=== PATIENT | female | born 1975 | race African-American/Black ===

== ENCOUNTER 2017-04-04 16:00 | Emergency (ER) | payer OTHER ==
[~2017-04-04] VITALS: Ht 177.8 cm; Wt 117.9 kg
[2017-04-04 16:02] VITALS: BP 142/90
[2017-04-04] MEDS ORDERED: MOBIC7.5 MG PO (16:19)
[2017-04-04] MEDS ORDERED: PENICILLIN VK500 M1 PO (16:19)
[2017-04-04] MEDS ORDERED: ULTRAM 50MG TAB50 MG PO (17:04)
== END 2017-04-04 17:14 | disposition home or self-care (01) ==
LOC: ER 16:00
DX: K05.219 Aggressive periodontitis, localized, unspecified severity (principal); F17.210 Nicotine dependence, cigarettes, uncomplicated

== ENCOUNTER 2017-10-22 21:15 | Emergency (ER) | payer OTHER ==
[~2017-10-22] VITALS: Ht 177.8 cm; Wt 113.4 kg
[~2017-10-22 21:15] MED LIST: MOBIC7.5 MG PO; PENICILLIN VK500 M1 PO; ULTRAM 50MG TAB50 MG PO
[2017-10-22 22:10] VITALS: BP 132/60
[2017-10-22] MEDS ORDERED: NORFLEX100 MG PO (22:13)
[2017-10-22] MEDS ORDERED: IBUPROFEN 800800 M1 PO (22:13)
== END 2017-10-22 22:20 | disposition home or self-care (01) ==
LOC: ER 21:15
DX: S39.012A Strain of muscle, fascia and tendon of lower back, initial encounter (principal); S16.1XXA Strain of muscle, fascia and tendon at neck level, initial encounter; L93.0 Discoid lupus erythematosus; F17.210 Nicotine dependence, cigarettes, uncomplicated; V49.40XA Driver injured in collision with unspecified motor vehicles in traffic accident, initial encounter; Y92.89 Other specified places as the place of occurrence of the external cause; Y93.89 Activity, other specified; Y99.8 Other external cause status

== ENCOUNTER 2018-06-03 16:06 | Emergency (ER) | payer OTHER ==
[~2018-06-03] VITALS: Ht 177.8 cm; Wt 113.4 kg
[~2018-06-03 16:06] MED LIST changes: +IBUPROFEN 800800 M1 PO; +NORFLEX100 MG PO
[2018-06-03 16:56] LABS: URINE BLOOD 2+ (Negative); URINE CLARITY CLEAR; URINE COLOR YELLOW; URINE GLUCOSE-RANDOM* NEGATIVE (Negative); URINE KETONES 1+ (Negative); URINE LEUKOCYTES-REFLEX NEGATIVE (Negative); URINE NITRITE-REFLEX NEGATIVE (Negative); URINE PROTEIN (DIPSTICK) 1+ (Negative)
[2018-06-03 16:57] LABS: ICTOTEST (BILI CONFIRMATORY) Negative (Negative); URINE BILIRUBIN NEGATIVE (Negative)
[2018-06-03 17:04] LABS: CRYSTALS None Seen /LPF (None Seen); SQUAMOUS 4-10 Moderate /LPF (0-3)
[2018-06-03 17:05] LABS: HYALINE CASTS 0-3 Few /LPF (None Seen); URINE RBC 0-2 Rare /HPF (0-2); URINE WBC-REFLEX None Seen /HPF (0-5)
[2018-06-03 17:06] LABS: BACTERIA-REFLEX 1-9 Few /HPF (None Seen)
[2018-06-03 18:21] LABS: ABSOLUTE NEUTROPHILS 8.1 thou/uL (1.4-8.2); BASOPHILS 0.2 % (0.0-2.0); HEMATOCRIT 39.7 % (37.0-47.0); HEMOGLOBIN 13.3 gm/dL (12.0-15.0); LYMPHOCYTES 11.6 % (24.0-44.0); MCH 27.5 pg (26.0-34.0); MCHC 33.5 g/dL (28.0-37.0); MCV 82.2 fL (80.0-100.0); PLATELET COUNT 276 thou/uL (150-400); POLYS 80.2 % (36.0-66.0); RBC 4.83 mil/uL (4.20-5.00); RDW 14.5 % (10.5-14.5); WBC 10.1 thou/uL (4.0-11.0)
[2018-06-03 18:31] LABS: CALCIUM 9.8 mg/dL (8.5-10.1); POTASSIUM 3.5 mmol/L (3.5-5.1)
[2018-06-03 20:02] VITALS: BP 128/68
== END 2018-06-03 20:06 | disposition home or self-care (01) ==
LOC: ER 16:06
PROVIDERS: Nurse Practitioner Family
DX: B34.9 Viral infection, unspecified (principal); R11.10 Vomiting, unspecified; F17.210 Nicotine dependence, cigarettes, uncomplicated; Z98.890 Other specified postprocedural states